=== PATIENT | male | born 1960 | race Caucasian/White ===

== ENCOUNTER → 2016-12-10 | Outpatient (CLI) | payer BC ==
[~2016-12-10] MED LIST: DIFL0.0519; KETO10TA OPL; POLYSOL50
--- NOTE | 2016-12-10 11:05 | DIAGNOSTIC IMAGING REPORT ---
LEFT SHOULDER MIN 2 VIEWS ROUTINE CLINICAL HISTORY: M25.519 Shoulder [id number] Biceps tendonitis on [id number] COMPARISON: None. DISCUSSION: Moderate generalized degenerative change. Old grade 1 separation left acromioclavicular joint. Moderate superimposed degenerative change. No abnormal soft tissue calcifications. There is no evidence for soft tissue swelling. IMPRESSION: Chronic and degenerative change. No acute process. Electronically signed by: Vignesh Ingram M.D. 12/10/2016 11:03 AM Dictated Date/Time: 12/10/2016 11:02 AM
== END | disposition home or self-care (01) ==
LOC: C.LAB1850 10:41
PROVIDERS: ATTEND Internal Medicine Pulmonary Disease
DX: M25.519 Pain in unspecified shoulder (principal); M75.22 Bicipital tendinitis, left shoulder; Z11.59 Encounter for screening for other viral diseases; M19.012 Primary osteoarthritis, left shoulder

== ENCOUNTER → 2017-06-05 | Outpatient (CLI) | payer BC ==
--- NOTE | 2017-06-06 05:43 | PAP/PSG TECHNICIAN REPORT ---
[facility] Production Control Expert Polysomnogram Report Study name: None Report date: 06/06/2017 Study date: 06/05/2017 Referring Physician: Randy Lucio M.D. Name: SHIRA LALI Tanesha Interpreting Physician: Randy Lucio M.D. Date of : 1960 Production Control Expert: PAULINO Linares. Sex: Male Age: 56 StudyType: PSG PAP Weight: 251 lbs Height: 56 years, Height 6' 3" Neck Circum:16.5in. BMI: 31.37 Medications: None Patient History Study started on room air with 4 cwp in room #8. 56 yr old male here tonight for a titration study. He has been on cpap for many years and has not been feeling rested on his current settings. He has a very old machine. He uses nasal pillows. He is here to see if he needs a change in his pressure and to make sure he is using the proper interface. His neck circ=16.5inches. Parameters Monitored NPSG: E1-M2, E2-M1, Fp1-M2, Fp2-M1, F3-M2, F4-M2, F4-M1, C3-M2, C4-M2, C4-M1, O1-M2, O2-M2, O2-M1, T3-M2, T4-M1, P3-M2, P4-M1, CHIN1, CHIN2, HR, EKG, Legs, PFLOW, SNOR, FLOW, CFLOW, Tidal Volume, THOR, ABDO, SpO2, PLTH, CPRESS, ETCO2 Wave, ETCO2, pH Sleep Architecture Sleep Stages Time at Lights Off 10:22:44 PM STAGES Time (min.) TST (%) Time at Lights On 5:28:14 AM Wake 168.0 -- Total Recording Time (TRT) 425.00 min. N1 24.0 9 Total Sleep Period (TSP) 410.5 min. N2 158.0 61 Total Sleep Time (TST) 257.0min. N3 35.5 14 Awake Time 168.0 min. REM 39.5 15 Wake after Sleep Onset 156.5 min. Sleep Efficiency (SE) 60 % Sleep Onset Latency (SHADI) 12.0 min. Number of Stage 1 Shifts None Awakenings 17 Stage Changes 74 Number of REM periods 5 REM 39.5 15 REM Latency 85.0 min. NREM 217.5 85 Body Position Analysis Supine Right Left Side Prone Vertical Total Sleep Time (min.) 78.9 58.5 159.9 218.39 0.0 0.0 Total Sleep Time (%) 15% 23% 62% 85 0% N/A% Total Sleep Time REM (min.) 17.0 14.5 8.0 None 0.0 0.0 Total Sleep Time NREM (min.) 21.6 44.0 151.9 None 0.0 0.0 Intermittent Wake (min.) 40.3 70.9 56.8 None 0.0 0.0 Total Sleep Period (%) 19% None None None None None Arousals Myoclonus (PLM) * Events Count Index Events Count Index Spontaneous 17 4 Events Awake (PLMW) 75 26.8 Respiratory 1 0.2 Events Asleep w/ Arousal (PLMA) 5 1.2 PLM 4 1 Events Asleep w/o Arousal (PLMS) 35 8.2 Snoring 0 0 Total Asleep 40 9.3 Total 22 5 Total 115 16 Respiratory Analysis * CA OA MA CH H RERA Total Count 0 0 0 0 3 1 3 Index 0.0 0.0 0.0 0 0.7 0 0.9 Mean Duration 0.0 0.0 0.0 0.00 37.9 15.6 32.3 Longest Duration 0.0 0.0 0.0 0.00 0.0 15.6 55.6 Respiratory Event Summary Total Supine ~Supine Right Left Prone REM NREM Apneas Count 0 0 0 0 0 N/A 0 0 Index 0.0 0 0 0.0 0.0 N/A 0 0 Hypopneas (4% Desat) Count 3 2 1 0 1 N/A 3 0 Index 0.7 3.1 0 0.0 0.4 N/A 4.6 0.0 Apneas & All Hypopneas Count 3 2 1 0 1 N/A 3 0 Index 0.7 3 0 0 0 N/A 4.6 0.0 Respiratory Events (Stock Dealer+All Hyp+RERA) Count 3 3 1 0 1 N/A 3 0 Index 0.9 5 0 0.0 0.4 N/A 4.6 0.3 Respiratory Related Arousal Count 1 3 0 0 0 N/A 0 1 Index 0.2 2 0 0 0 N/A 0 0 Snoring Analysis Supine Right Left Prone REM NREM Total Snore duration 0.2 min Snores count 1 1 2 N/A 2 2 4 Snore mean duration 2.3 Sec Snores index 2 1 1 N/A 3.0 0.6 0.9 TST with snoring (%) 0.1% Desaturation Event Summary: Minimum %SpO2 Event Count Mean/Min/Max Duration(sec.) Desaturation Index % Time In Bed > 90 5 30.9 / 7.5 / 51.0 0.7 98.1 86 - 90 2 16.6 / 7.5 / 25.8 15.3 1.9 81 - 85 0 N/A 0.0 0.0 76 - 80 0 N/A 0.0 0.0 71 - 75 0 N/A 0.0 0.0 66 - 70 0 N/A 0.0 0.0 61 - 65 0 N/A 0.0 0.0 56 - 60 0 N/A 0.0 0.0 51 - 55 0 N/A 0.0 0.0 < 50 0 N/A 0.0 0.0 Total REM NREM Awake <50% 0.0 min. 0.0 min. 0.0 min. 0.0 min. 51 - 60% 0.0 min. 0.0 min. 0.0 min. 0.0 min. 61 - 70% 0.0 min. 0.0 min. 0.0 min. 0.0 min. 71 - 80% 0.0 min. 0.0 min. 0.0 min. 0.0 min. 81 - 90% 7.8 min. 3.6 min. 1.9 min. 2.3 min. 91 - 100% 413.1 min. 35.9 min. 213.5 min. 163.6 min. Average 92 92 92 93 Minimum SpO2 87 87 88 89 Desaturation Event Index 0.8 1.5 0.3 1.4 # Desat. Events below 89% 2 1 1 N/A Time(%) with Saturation below 89% 0.2 0.1 0.1 0.0 Time(min.) with Saturation below 89% 0.9 0.6 0.3 0.0 Time (mins) REM (mins) NREM (mins) % of TST SpO2 Below 90% 2 1 N1 0.9 SpO2 Below 88% 1 0 0 0 Heart Rate Analysis Min (bpm) Max (bpm) Average (bpm) Awake 39 94 63 NREM 54 82 60 REM 56 77 61 Overall 54 82 60 Supplemental O2 Values Minimum O2 level: None Value Start Time End Time Production Control Expert Comments Mr. Morgan slept in the supine, right and left positions. No cardiac arrhythmia noted. Some leg movements noted. No bruxism noted. CPAP was initiated at +4 CMH2O and up-titrated to an optimal level of +5 CMH2O, which nearly eliminated all respiratory events and snoring. A Vitale Fx nasal cushion system by [employer] was used during titration He did not use the restroom during the night. He stated that he slept about the same as usual. The final report will be interpreted and signed by a sleep physician. The completed physician report will then be placed in the patient medical record. Therapy Event: Therapy (cm H20) 0 4 5 Total Time at Pressure (min.) 0.4 194.4 230.2 TST at Pressure (min.) 0.0 175.8 81.2 # Periods 1 1 1 Sleep Onset (min.) N/A 11.6 0.0 REM Onset (min.) N/A 96.6 0.0 Sleep Efficiency % 0 90 35 Wakefulness (%) 100.0 9.6 64.7 Wakefulness (min.) 0.4 18.6 149.0 NREM 1 (%) 0.0 4.6 6.5 NREM 1 (min.) 0.0 9.0 15.0 NREM 2 (%) 0.0 58.6 19.1 NREM 2 (min.) 0.0 114.0 44.0 NREM 3 (%) 0.0 18.3 0.0 NREM 3 (min.) 0.0 35.5 0.0 REM (%) 0.0 8.9 9.6 REM (min.) 0.0 17.3 22.2 # Arousals N/A 17 5 Arousal Index N/A 5.8 3.7 # Snore N/A 3 1 Snore Index N/A 1.0 0.7 AHI N/A 1.0 0.0 AHI Supine N/A 7.5 0.0 AHI Non-Supine N/A 0.4 0.0 NREM AHI N/A 0.0 0.0 REM AHI N/A 10.4 0.0 RDI N/A 1.4 0.0 # Obstructive N/A 0 0 # Central Ap N/A 0 0 # Mixed N/A 0 0 # Hypopneas N/A 3 0 RERAS N/A 1 0 Total Respiratory Events N/A 4 0 Time Below SpO2 89.00% (min.) 0.0 0.6 0.4 Mean NREM SpO2 (%) N/A 92 92 Mean REM SpO2 (%) N/A 92 92 Mean Sleep SpO2 (%) N/A 92 92 Min NREM SpO2 (%) N/A 88 88 Min REM SpO2 (%) N/A 87 88 Position Supine (min.) 0.0 15.9 22.7 Position Non-supine (min.) 0.0 159.9 58.5 LM Index Sleep N/A 12.6 2.2 LM Index NREM N/A 13.6 0.0 LM Index REM N/A 3.5 8.1 Mean Heart Rate (bpm) N/A 61 59 Min Heart Rate (bpm) N/A 55 54
--- NOTE | 2017-06-09 18:16 | POLYSOMNOGRAPH REPORT ---
CLINICAL DATA: A 56-year-old male with BMI of 31.4 who has been on CPAP for many years and does not feel as well rested as he had been previously on his current CPAP settings. He has a very old machine and uses nasal pillows. SLEEP ARCHITECTURE: Total recording time was 425 minutes. Total sleep period was 410.5 minutes. Total sleep time was 257 minutes, divided between 217.5 minutes of non-REM sleep and 39.5 minutes of REM sleep. Sleep onset latency was 12 minutes. REM latency was 85 minutes. Sleep efficiency was 60%. Wake after sleep onset was 156.5 minutes. Sleep consisted of stage N1 9%, stage N2 61%, stage N3 14%, and REM 15%. AROUSAL DATA: 22 arousals were recorded for an index of 5 per hour. 17 were spontaneous. PLM DATA: 40 limb movements during sleep were noted for an index of 9.3 per hour with arousal index of 1.2 per hour. RESPIRATORY DATA: The AHI was 0.7. There were 3 hypopneic episodes with mean duration of 37.9 seconds. OXIMETRY DATA: No significant hypoxemia was seen. Oxygen krystina was 87% during REM. Mean saturation was 92%. Time below 88% was 1 minute. EKG: Heart rates ranged from 54-82 beats per minute. No arrhythmias were noted. OFFICE SERVICES COORDINATOR'S COMMENTS: The patient slept in the right, left, and supine positions. A Vitale FX nasal cushion system by [employer] was used. The patient was titrated to 5 cm of water pressure. At 5 cm of water pressure, he slept for 81.2 minutes with an AHI of 0. IMPRESSION: Obstructive sleep apnea corrected with CPAP 5 cm of water pressure using a Vitale FX nasal cushion system by [employer]. RECOMMENDATIONS: The patient could have his CPAP adjusted to 5 cm water pressure. However, if he is comfortable at his current setting, he can be continued on that. [facility]
== END | disposition home or self-care (01) ==
LOC: C.NEUR 21:00
PROVIDERS: ATTEND Internal Medicine Pulmonary Disease
DX: M10.9 Gout, unspecified (principal); Z00.00 Encounter for general adult medical examination without abnormal findings; G47.33 Obstructive sleep apnea (adult) (pediatric)

== ENCOUNTER → 2018-05-19 | Outpatient (CLI) | payer OTHER ==
[2018-05-19 12:18] LABS: BASO % 0.6 %; BASO ABS # 0.03 K/uL (0-0.2); EOS % 2.7 %; EOS ABS # 0.14 K/uL (0-0.5); HEMATOCRIT 46.3 % (42-52); HEMOGLOBIN 15.7 g/dL (14.0-18.0); IG# 0.02 K/uL (0.00-0.02); LYMPH % 31.4 %; LYMPH ABS # 1.65 K/uL (1.2-3.4); MEAN CELL VOLUME 91.5 fL (80-100); MEAN CORPUSCULAR HGB CONC 33.9 g/dl (32-36); MEAN PLATELET VOLUME 12.6 fL (7.4-10.4); MONO % 11.4 %; NEUT % 53.5 %; NEUT ABS # 2.82 K/uL (1.4-6.5); PLATELET COUNT 165 K/uL (130-400); RED CELL DISTRIBUTION WIDTH CV 13.6 % (11.5-14.5); RED CELL DISTRIBUTION WIDTH SD 44.6 fL (36.4-46.3); WHITE BLOOD COUNT 5.26 K/uL (4.8-10.8)
[2018-05-19 13:00] LABS: ALKALINE PHOSPHATASE 70 U/L (45-117); ALT/SGPT 35 U/L (12-78); AST/SGOT 17 U/L (15-37); BLOOD UREA NITROGEN 14 mg/dl (7-18); CALCIUM 8.2 mg/dl (8.5-10.1); CARBON DIOXIDE 26 mmol/L (21-32); CHOLESTEROL 178 mg/dl (0-200); CREATININE 1.07 mg/dl (0.60-1.40); GLUCOSE 91 mg/dl (70-99); LDL CHOLESTEROL CALCULATED 105 mg/dl; POTASSIUM 4.1 mmol/L (3.5-5.1); SODIUM 141 mmol/L (136-145); TOTAL PROTEIN 7.6 gm/dl (6.4-8.2); URIC ACID 7.5 mg/dl (2.6-7.2)
== END | disposition home or self-care (01) ==
LOC: C.LAB1850 10:44
PROVIDERS: ATTEND Internal Medicine Pulmonary Disease
DX: M10.9 Gout, unspecified (principal)